=== PATIENT | female | born 1970 | race African-American/Black ===

== ENCOUNTER → 2018-09-11 | Outpatient (CLI) | payer OTHER ==
[~2018-09-11] MED LIST: IOHEXOL 240 MG/ML 50ML VIAL. PO ONE; IOHEXOL 300 MG/ML 100ML VIAL. IV ONE
--- NOTE | 2018-09-11 15:24 | KCIC ---
EXAM: AP pelvis, AP and lateral views of both hips DATE: 09/11/2018 9:30 AM INDICATION: Bilateral hip and groin pain COMPARISON: No Prior FINDINGS: No evidence of acute fracture or dislocation. Iliac crest enthesopathy. Hip joint spaces are preserved. Moderate to large volume colonic stool content is seen. Prominence of the femoral head/neck junction bilaterally may be seen with cam-type VALERIO. IMPRESSION: 1. No evidence of acute fracture or dislocation. 2. Prominence of the femoral head/neck junction bilaterally may be seen with cam-type VALERIO. Electronically signed by: Дмитрий Silva MD (09/11/2018 3:20 PM) [id number]
--- NOTE | 2018-09-11 15:37 | KCIC ---
EXAM: CT Abdomen and Pelvis with IV contrast CLINICAL HISTORY: Lower abdominal pain bilateral groin pain. History of partial hysterectomy.. COMPARISON: none TECHNIQUE: Helical CT of the abdomen and pelvis was performed following the administration of intravenous contrast. Axial, coronal and sagittal reformatted images were generated. PQRS compliance statement - One or more of the following individualized dose reduction techniques were utilized for this study: 1. Automated exposure control 2. Adjustment of the mA and/or kV according to patient size 3. Use of iterative reconstruction technique FINDINGS: Lower chest: Linear opacities in the lower lobes and lingula likely scarring/atelectasis. Abdomen and Pelvis: No focal liver lesion. Liver is enlarged measuring 20.8 cm in length. Gallbladder is normal. No biliary ductal dilatation. Spleen is unremarkable. Adrenal glands and pancreas are unremarkable. Symmetric nephrograms. A 2.4 cm left interpolar renal cystic lesion is seen. Right lower pole hypodense lesion is too small to accurately characterize. No hydronephrosis or hydroureter. Bladder is unremarkable. Appendix is normal. No small or large bowel dilatation. Moderate colonic stool content. Lipoma is seen within the hepatic flexure of the colon. Changes of partial hysterectomy with left ovarian cystic structure measuring 2.2 cm. Right ovary is also visualized and grossly unremarkable by CT. Fat-containing periumbilical hernia is seen. Bones: Osseous structures are grossly unremarkable. IMPRESSION: 1. Moderate colonic stool content is seen. 2. Lipoma is seen within the wall of the hepatic flexure of the colon 3. There has been a partial hysterectomy with both ovaries remaining. 4. Mild hepatomegaly. Electronically signed by: Дмитрий Silva MD (09/11/2018 3:34 PM) [id number]
== END | disposition home or self-care (01) ==
LOC: KCIC CT 08:19
PROVIDERS: ATTEND Family Medicine
DX: D17.5 Benign lipomatous neoplasm of intra-abdominal organs (principal); R16.0 Hepatomegaly, not elsewhere classified; N83.202 Unspecified ovarian cyst, left side; K42.9 Umbilical hernia without obstruction or gangrene; N28.89 Other specified disorders of kidney and ureter; M77.8 Other enthesopathies, not elsewhere classified; Z90.710 Acquired absence of both cervix and uterus; M25.551 Pain in right hip; M25.552 Pain in left hip
CPT/HCPCS: 73521; 74177; Q9966; Q9967